=== PATIENT | male | born 2000 | race American Indian/Alaskan Native ===

== ENCOUNTER 2021-09-14 18:14 | Emergency (ER) | payer SELFPAY ==
[2021-09-14] MEDS ORDERED: Sodium Chloride 0.9% 10 ML Syringe FLUSH PRN (18:49)
[2021-09-14] MEDS ORDERED: LORazepam 2 MG/ML SDV IVPUSH ONE (18:55)
[2021-09-14] MEDS ORDERED: Lidocaine 2% with EPINEPHrine 1:200,000 20 ML SDV INJECT ONE (18:55)
[2021-09-14] MEDS ORDERED: Doxycycline Monohydrate 100 MG Cap PO ONE (19:38)
== END 2021-09-14 20:13 | disposition home or self-care (01) ==
LOC: DL.ED 18:14
DX: K64.5 Perianal venous thrombosis (principal); F17.210 Nicotine dependence, cigarettes, uncomplicated; Z88.0 Allergy status to penicillin
CPT/HCPCS: 96374; 99283; A9270; J2060; J3490

== ENCOUNTER 2021-12-13 06:50 | Emergency (ER) | payer SELFPAY ==
[2021-12-13] MEDS ORDERED: Sodium Chloride 0.9% 10 ML Syringe FLUSH PRN (07:06)
[2021-12-13] MEDS ORDERED: Omeprazole 20 MG Cap.CR PO ONE (07:15)
[2021-12-13] MEDS ORDERED: GI Cocktail Oral Solution 30 ML PO ONE (07:15)
== END 2021-12-13 07:45 | disposition home or self-care (01) ==
LOC: DL.ED 06:50
DX: K21.9 Gastro-esophageal reflux disease without esophagitis (principal); F17.210 Nicotine dependence, cigarettes, uncomplicated; Z88.0 Allergy status to penicillin
CPT/HCPCS: 99283; A9270-GY